=== PATIENT | female | born 1990 | race Asian ===

== ENCOUNTER 2018-03-21 09:39 | Emergency (ER) | payer OTHER, BC ==
[~2018-03-21] VITALS: Ht 170.2 cm; Wt 81.6 kg
[2018-03-21 09:45] VITALS: BP 121/73; Ht 170.2 cm; Wt 81.6 kg
== END 2018-03-21 10:59 | disposition home or self-care (01) ==
LOC: ED 09:39
DX: S13.4XXA Sprain of ligaments of cervical spine, initial encounter (principal); J45.909 Unspecified asthma, uncomplicated; G43.909 Migraine, unspecified, not intractable, without status migrainosus; V49.09XA Driver injured in collision with other motor vehicles in nontraffic accident, initial encounter; Y93.I9 Activity, other involving external motion; Y92.413 State road as the place of occurrence of the external cause; Y99.8 Other external cause status

== ENCOUNTER 2018-03-26 07:46 | Emergency (ER) | payer OTHER, BC ==
[2018-03-26 09:40] VITALS: BP 120/87
== END 2018-03-26 09:40 | disposition home or self-care (01) ==
LOC: ED 07:46
DX: S13.9XXD Sprain of joints and ligaments of unspecified parts of neck, subsequent encounter (principal); M54.12 Radiculopathy, cervical region; J45.909 Unspecified asthma, uncomplicated; G43.909 Migraine, unspecified, not intractable, without status migrainosus; V49.49XD Driver injured in collision with other motor vehicles in traffic accident, subsequent encounter

== ENCOUNTER → 2018-04-30 | Outpatient (CLI) | payer OTHER, BC | END | disposition home or self-care (01) | LOC: RD 10:48 | DX: S13.9XXD Sprain of joints and ligaments of unspecified parts of neck, subsequent encounter (principal); X58.XXXD Exposure to other specified factors, subsequent encounter ==

== ENCOUNTER → 2018-05-14 | Outpatient (CLI) | payer OTHER ==
[2018-05-14 10:19] LABS: CHOLESTEROL/HDL RATIO 3.9
== END | disposition home or self-care (01) ==
LOC: LB 09:16
PROVIDERS: Dermatology
DX: L70.0 Acne vulgaris (principal)

== ENCOUNTER → 2018-06-13 | Outpatient (CLI) | payer OTHER ==
[2018-06-13 11:59] LABS: ALT/SGPT 41 U/L (14-59); AST/SGOT 28 U/L (15-37)
[2018-06-13 12:07] LABS: CHOLESTEROL/HDL RATIO 5.3
[2018-06-14 13:05] LABS: THYROGLOBULIN ANTIBODY < 1.0 IU/mL (0.0-0.9)
== END | disposition home or self-care (01) ==
LOC: LB 10:20
DX: L70.0 Acne vulgaris (principal); E07.9 Disorder of thyroid, unspecified; E34.9 Endocrine disorder, unspecified; Z11.3 Encounter for screening for infections with a predominantly sexual mode of transmission
CPT/HCPCS: 86376

== ENCOUNTER → 2018-09-03 | Outpatient (CLI) | payer OTHER | END | disposition home or self-care (01) | LOC: LB 09:08 | DX: L70.0 Acne vulgaris (principal) ==

== ENCOUNTER 2018-10-09 15:22 | Emergency (ER) | payer OTHER ==
[~2018-10-09] VITALS: Ht 170.2 cm; Wt 77.1 kg
[2018-10-09 15:28] VITALS: BP 135/97; Ht 170.2 cm; Wt 77.1 kg
[2018-10-09 17:22] LABS: BASOPHIL % 0.3 % (0-2); PLATELET COUNT 319 x10^3mcL (130-400)
[2018-10-09 17:25] LABS: RED CELL DISTRIBUTION WIDTH 14.6 % (11.5-14.5)
[2018-10-09 17:39] LABS: CALCIUM 8.7 mg/dL (8.5-10.1); CARBON DIOXIDE 26.4 mmol/L (21-32); CHLORIDE SERUM 104 mmol/L (98-107); CREATININE SERUM 0.8 mg/dL (0.6-1.0); GFR1 > 60 mL/min; GLUCOSE SERUM 88 mg/dL (74-106); POTASSIUM SERUM 4.1 mmol/L (3.5-5.1); SODIUM SERUM 139 mmol/L (136-145)
[2018-10-09 17:43] LABS: ALBUMIN 3.9 g/dL (3.4-5.0); ALKALINE PHOSPHATASE 96 U/L (46-116); ALT/SGPT 43 U/L (14-59); AST/SGOT 27 U/L (15-37); BILIRUBIN TOTAL 0.37 mg/dL (0.20-1.00); TOTAL PROTEIN, SERUM 7.8 g/dL (6.4-8.2)
[2018-10-09 17:43] LABS: microscopic required? YES; urine erythrocyte NEGATIVE (NEGATIVE)
== END 2018-10-09 17:23 | disposition home or self-care (01) ==
LOC: ED 15:22
PROVIDERS: Emergency Medicine
DX: N83.201 Unspecified ovarian cyst, right side (principal); J45.909 Unspecified asthma, uncomplicated; G43.909 Migraine, unspecified, not intractable, without status migrainosus
CPT/HCPCS: 36415

== ENCOUNTER → 2018-10-19 | Outpatient (CLI) | payer OTHER | END | disposition home or self-care (01) | LOC: LB 13:47 | DX: N80.3 Endometriosis of pelvic peritoneum (principal) | CPT/HCPCS: 82670; 84402; 84403 ==

== ENCOUNTER → 2019-01-25 | Outpatient (CLI) | payer OTHER | END | disposition home or self-care (01) | LOC: LB 12:51 | PROVIDERS: Obstetrics & Gynecology | DX: N80.3 Endometriosis of pelvic peritoneum (principal) | CPT/HCPCS: 82670; 84402; 84403 ==

== ENCOUNTER 2019-02-15 07:47 | Day surgery (SDC) | payer OTHER ==
[~2019-02-15] VITALS: Ht 170.2 cm; Wt 74.4 kg
[2019-02-15 08:00] VITALS: BP 129/83
[2019-02-15 08:13] VITALS: BP 129/83
[2019-02-15 08:15] LABS: microscopic required? NO
[2019-02-15 08:24] LABS: BASOPHIL % 0.6 % (0-2); PLATELET COUNT 327 x10^3mcL (130-400)
[2019-02-15 08:28] LABS: UA SPECIFIC GRAVITY 1.015 (1.005-1.035); urine erythrocyte NEGATIVE (NEGATIVE)
[2019-02-15 08:30] LABS: CALCIUM 9.3 mg/dL (8.5-10.1); CARBON DIOXIDE 26.6 mmol/L (21-32); CHLORIDE SERUM 102 mmol/L (98-107); CREATININE SERUM 0.8 mg/dL (0.6-1.0); GFR1 > 60 mL/min; GLUCOSE SERUM 101 mg/dL (74-106); SODIUM SERUM 136 mmol/L (136-145)
[2019-02-15 08:35] LABS: ALKALINE PHOSPHATASE 81 U/L (46-116); ALT/SGPT 27 U/L (14-59); AST/SGOT 14 U/L (15-37); BILIRUBIN TOTAL 0.3 mg/dL (0.20-1.00); TOTAL PROTEIN, SERUM 7.8 g/dL (6.4-8.2)
[2019-02-15 09:49] LABS: RED CELL DISTRIBUTION WIDTH 14.6 % (11.5-14.5)
[2019-02-15 11:26] VITALS: BP 136/84
== END 2019-02-15 11:00 | disposition home or self-care (01) ==
LOC: DS 07:47 → OR 11:45
PROVIDERS: Obstetrics & Gynecology
DX: L92.8 Other granulomatous disorders of the skin and subcutaneous tissue (principal); J45.909 Unspecified asthma, uncomplicated; K21.9 Gastro-esophageal reflux disease without esophagitis; Z79.899 Other long term (current) drug therapy; Z98.890 Other specified postprocedural states
CPT/HCPCS: J1170; J1885; J2250; J2405; J2704; J3010; J3490; J7120

== ENCOUNTER 2019-03-07 18:47 | Emergency (ER) | payer OTHER ==
[~2019-03-07] VITALS: Ht 170.2 cm; Wt 73.5 kg
[2019-03-07 18:51] VITALS: BP 192/113; Ht 170.2 cm; Wt 73.5 kg
== END 2019-03-07 19:13 | disposition home or self-care (01) ==
LOC: ED 18:47
DX: S16.1XXA Strain of muscle, fascia and tendon at neck level, initial encounter (principal); R51 Headache; M79.601 Pain in right arm; J45.909 Unspecified asthma, uncomplicated; V49.49XA Driver injured in collision with other motor vehicles in traffic accident, initial encounter; Y93.I9 Activity, other involving external motion; Y92.488 Other paved roadways as the place of occurrence of the external cause; Y99.8 Other external cause status

== ENCOUNTER → 2019-12-04 | Outpatient (CLI) | payer OTHER | END | disposition home or self-care (01) | LOC: LB 11:18 | PROVIDERS: ATTEND Obstetrics & Gynecology | DX: Z31.9 Encounter for procreative management, unspecified (principal) | CPT/HCPCS: 82784; 83516; 86255; 86787 ==

== ENCOUNTER → 2019-12-18 | Outpatient (CLI) | payer OTHER | END | disposition home or self-care (01) | LOC: LB 09:50 | PROVIDERS: ATTEND Obstetrics & Gynecology | DX: Z31.9 Encounter for procreative management, unspecified (principal) | CPT/HCPCS: 86787; 87329 ==